=== PATIENT | female | born 1980 | race Caucasian/White ===

== ENCOUNTER 2017-11-27 21:23 | Emergency (ER) | payer MEDICAID ==
[~2017-11-27] VITALS: Ht 167.6 cm; Wt 73.0 kg
[2017-11-27 21:51] VITALS: BP 122/81
== END 2017-11-28 | disposition left against medical advice (07) ==
LOC: ER 21:23
DX: R07.9 Chest pain, unspecified (principal); Z53.21 Procedure and treatment not carried out due to patient leaving prior to being seen by health care provider